=== PATIENT | female | born 1995 | race Two or more races ===

== ENCOUNTER 2025-05-05 10:17 | Outpatient (CLI) | payer MEDICAID ==
[2025-05-05 10:42] LABS: Hematocrit 37.2 % (36.0-46.0); Hemoglobin 12.7 g/dL (12.2-16.2); Mean Corpuscular Hemoglobin 28.4 pg (28.0-32.0); Mean Corpuscular Volume 83.6 fL (80.0-100.0); Nucleated Red Blood Cells % 0.0 %
[2025-05-05 11:35] LABS: Amphetamine Screen, Urine Neg (NEGATIVE); Barbiturate Scree,Urine Neg (NEGATIVE); Benzodiazephine Screen, Urine Neg (NEGATIVE); Cannabinoid Screen, Urine Neg (NEGATIVE); Cocaine Screen, Urine Neg (NEGATIVE); Opiate Scree,Urine Neg (NEGATIVE); Phencyclidine Screen, Urine Neg (NEGATIVE)
[2025-05-07 04:06] LABS: Chlamydia Trachomatis, NAA Negative (Negative); Neisseria gonorrhoeae, NAA Negative (Negative)
== END 2025-05-05 17:00 | disposition home or self-care (01) ==
LOC: LAB 10:17
PROVIDERS: ATTEND Obstetrics & Gynecology
DX: O23.40 Unspecified infection of urinary tract in pregnancy, unspecified trimester (principal); N39.0 Urinary tract infection, site not specified; Z11.3 Encounter for screening for infections with a predominantly sexual mode of transmission; Z20.09 Contact with and (suspected) exposure to other intestinal infectious diseases; Z3A.00 Weeks of gestation of pregnancy not specified
CPT/HCPCS: 36415; 80307; 83036; 84144; 84702; 85025; 86703; 86765; 86780; 86787; 86850; 86900; 86901; 87086; 87340

== ENCOUNTER 2025-08-31 08:57 | Observation (INO) | payer MEDICAID ==
[~2025-08-31] VITALS: Ht 165.1 cm; Wt 95.3 kg
[2025-08-31] MEDS ORDERED: PREN-96 PO (09:41)
--- NOTE | 2025-08-31 09:58 | DVH ---
LIMITED OB ULTRASOUND > 14 WKS: HISTORY: CRAMPING TECHNIQUE: Multiple real-time grayscale images of the gravid uterus with duplex Doppler color flow and M-mode spectral analysis. TRANSDUCER: Transabdominal COMPARISON: None FINDINGS: IUP single live fetus at 27 weeks and 1 day based on composite averages of the BPD, head circumference, abdominal circumference and femur length Estimated weight 990 grams heart rate 165.9 beats per minute DAVID 12.62cm, deepest pocket measures 5.8 cm Cervix 3.19 cm Cephalic Presentation Grade 1, posterior Placenta without previa or abruption. Limited assessment of anatomy secondary to gestational age. Grossly, 4- chamber heart, stomach, kidneys, bladder are grossly within normal limits. IMPRESSION: IUP single live fetus at 27 weeks and 1 dayAUA corresponding to an ROGELIO of 11/29/2025
[2025-08-31] MEDS: ONDANSETRON ODT 4 MG TAB PO ONE (10:28)
--- NOTE | 2025-08-31 14:33 | DVHDS2 ---
Physician Discharge Progress N Final Diagnosis: cramping 25wks Operations or Procedures: Operations or Procedures nst,sono Condition on Discharge: Good Disposition: Home Discharge Instructions: Diet: Regular Activity: Light activity Medications: na Follow Up Care: Specialist: 1w Discharge Statement: "Patient was advised to return to the ER or call 911 if any headaches, dizz iness, shortness of breath, chest pain, abdominal pain, bleeding, fevers, or worsening of medical condition. Patient was counseled about treatment plan, medications, possible side effects, patientverbalized understanding. All questions were answered to the best of my ability. This discharge took greater then 30 minutes in planning, reviewing documentation, counseling the patient, and discussing with other team members." Visit Coding OBGYN Date of Service: Aug 31, 2025 Billing Provider: MALKA PERRY DO TACTICAL DEBRIEFER OFFICER Common Visit Codes: 63048-[id number] OBS CARE (HIGH) TACTICAL DEBRIEFER OFFICER Procedure Codes: 23129-51- NON-STRESS TEST MALKA PERRY DO Aug 31, 2025 14:33
== END 2025-08-31 11:23 | disposition home or self-care (01) ==
LOC: LDRP 08:57
PROVIDERS: ADMIT Obstetrics & Gynecology; ATTEND Obstetrics & Gynecology
DX: O62.9 Abnormality of forces of labor, unspecified (principal); Z3A.25 25 weeks gestation of pregnancy; Z98.890 Other specified postprocedural states
CPT/HCPCS: 76805; 81002; 94760; A4649; G0378; Q0162